=== PATIENT | female | born 1975 | race Two or more races ===

== ENCOUNTER 2023-02-23 10:51 | Inpatient (IN) | payer MEDICAID ==
[~2023-02-23] VITALS: Ht 165.1 cm; Wt 58.0 kg
[2023-02-23 11:37] LABS: Basophils # (auto) 0.1 10 ^3/uL (0-0.2); Basophils % (auto) 0.4 % (0.0-2.0); Eosinophils # (auto) 0 10 ^3/uL (0-0.8); Hematocrit 49.5 % (36.0-46.0); Hemoglobin 15.5 g/dL (12.2-16.2); Lymphocytes # (auto) 0.5 10 ^3/uL (0.4-5.4); Lymphocytes % (auto) 2.1 % (10.0-50.0); Mean Corpuscular Hemoglobin 27.8 pg (28.0-32.0); Mean Corpuscular Hgb Conc. 31.3 g/dL (32.0-36.0); Mean Corpuscular Volume 88.8 fL (80.0-100.0); Monocytes # (auto) 0.7 10 ^3/uL (0-1.3); Monocytes % (auto) 2.9 % (0.0-12.0); Neutrophils # (auto) 22.6 10 ^3/uL (1.6-8.6); Neutrophils % (auto) 94.6 % (37.0-80.0); Red Blood Cells 5.58 10^6/uL (4.0-5.20); Red Cell Distribution Width 13.4 % (11.8-14.3); White Blood Cell 23.9 10^3/uL (4.4-10.8)
[2023-02-23] MEDS ORDERED: SODIUM CHLORIDE 0.9% 1,000 ML IV ONE ×2 (11:45)
[2023-02-23] MEDS ORDERED: ONDANSETRON HCL 4 MG/2 ML VIAL IV ONE (11:45)
[2023-02-23] MEDS ORDERED: MORPHINE SULFATE 4 MG/ML SYR/VIAL IV ONE (11:45)
[2023-02-23 11:54] LABS: Albumin 3.7 g/dL (3.4-5.0); Calcium 8.3 mg/dL (8.5-10.1); Potassium 4.1 mmol/L (3.5-5.1)
[2023-02-23 11:58] LABS: BUN/Creatinine Ratio 14.6 (10.0-20.0); Bilirubin, Total 1.6 mg/dL (0.2-1.0); Total Protein 8.5 g/dL (6.4-8.2)
[2023-02-23 12:08] LABS: Urine Bacteria FEW /hpf (None Seen); Urine Blood 1+ /uL (Negative); Urine Hyaline Cast FEW /lpf (0 - 2); Urine Specific Gravity 1.025 (1.001-1.035); Urine WBC 2 /hpf (0 - 5)
[2023-02-23] MEDS ORDERED: DEXTROSE (50%) 50ML SYRG IV PRN (12:15)
[2023-02-23] MEDS ORDERED: PIPERACILLIN-TAZOB 3.375GM 100 ML IV ONE (12:15)
[2023-02-23] MEDS ORDERED: SODIUM BICARBONATE 8.4 % INJ 50ML VIAL IV ONE ×2 (12:15→20:30)
[2023-02-23 13:21] LABS: Lactic Acid w/Reflex 4.6 mmol/L (0.4-2.0)
[2023-02-23] MEDS: SODIUM CHLORIDE 0.9% 1,000 ML IV SCH ×2 (14:20→15:28)
[2023-02-23] MEDS: InsuLIN R (HUMAN) 100 UNITS in SODIUM CHL 0.9% 99 ML IV SCH (14:21)
[2023-02-23] MEDS: ACCU-CHEK COMFORT CURVE STRIP VI SCH ×7 (14:25→22:47)
[2023-02-23] MEDS ORDERED: SODIUM CHLORIDE 0.9% 1,000 ML IV SCH ×3 (16:15→18:15)
[2023-02-23] MEDS ORDERED: HYDROcodone-ACET 5/325MG TAB PO PRN (16:15)
[2023-02-23] MEDS ORDERED: ONDANSETRON HCL 4 MG/2 ML VIAL IV PRN (16:15)
[2023-02-23] MEDS ORDERED: MORPHINE SULFATE INJ 2 MG/ml SYRG IV PRN (16:15)
[2023-02-23] MEDS ORDERED: ACETAMINOPHEN 325 MG TAB PO PRN (16:15)
[2023-02-23] MEDS ORDERED: NITROGLYCERIN 0.4 MG SL TAB SL PRN (16:15)
[2023-02-23 19:02] LABS: BUN/Creatinine Ratio 23.4 (10.0-20.0); Calcium 6.1 mg/dL (8.5-10.1); Magnesium 1.5 mg/dL (1.6-2.6); Phosphorus 1.2 mg/dL (2.5-4.90); Potassium 3.2 mmol/L (3.5-5.1)
[2023-02-23] MEDS: MAGNESIUM SULFATE 1GM/100ML 100 ML IV SCH ×2 (21:21→22:13)
[2023-02-23] MEDS: POTASSIUM CHL 20MEQ/100ML 100 ML IV SCH ×2 (21:55→23:34)
[2023-02-23] MEDS: D5W/SOD CHL 0.45% 1,000 ML IV SCH (22:19)
[2023-02-23] MEDS: PIPERACILLIN-TAZOB 3.375GM 100 ML IV SCH (23:10)
[2023-02-23 23:41] LABS: Chloride 115 mmol/L (98-107); Potassium 3.5 mmol/L (3.5-5.1); Sodium 140 mmol/L (136-145)
[2023-02-24] MEDS: ACCU-CHEK COMFORT CURVE STRIP VI SCH ×12 (00:08→13:56)
[2023-02-24 00:22] LABS: Anion Gap 11 (5-15); BUN/Creatinine Ratio 22.7 (10.0-20.0); Blood Urea Nitrogen 20 mg/dL (7-18); Calcium 7.4 mg/dL (8.5-10.1); Carbon Dioxide 14 mmol/L (21-32); GFR African American 88 mL/min; GFR Non-African American 73 mL/min; Glucose 264 mg/dL (74-106); Magnesium 2.4 mg/dL (1.6-2.6)
[2023-02-24 00:24] LABS: Phosphorus 0.9 mg/dL (2.5-4.90)
[2023-02-24] MEDS ORDERED: POTASSIUM PHOSPHATE 22 MEQ in SODIUM CHL 0.9% 100 ML IV ONE (00:45)
[2023-02-24] MEDS: POTASSIUM CHL 20MEQ/100ML 100 ML IV SCH (01:40)
[2023-02-24 02:36] LABS: BUN/Creatinine Ratio 23.4 (10.0-20.0); Calcium 6.9 mg/dL (8.5-10.1); Magnesium 2.1 mg/dL (1.6-2.6); Potassium 3.3 mmol/L (3.5-5.1)
[2023-02-24 02:42] LABS: Phosphorus 0.6 mg/dL (2.5-4.90)
[2023-02-24] MEDS: D5W/SOD CHL 0.45% 1,000 ML IV SCH ×3 (03:35→19:09)
[2023-02-24] MEDS ORDERED: POLYETHYLENE GLYCOL 17 GM PWDR PO PRN (04:15)
[2023-02-24] MEDS: PIPERACILLIN-TAZOB 3.375GM 100 ML IV SCH ×3 (05:28→21:40)
[2023-02-24 06:14] LABS: BUN/Creatinine Ratio 20.9 (10.0-20.0); Calcium 7.2 mg/dL (8.5-10.1); Magnesium 2.5 mg/dL (1.6-2.6); Phosphorus 1.1 mg/dL (2.5-4.90); Potassium 3.4 mmol/L (3.5-5.1)
[2023-02-24] MEDS ORDERED: POTASSIUM CHL 20MEQ/100ML 100 ML IV ONE (07:00)
[2023-02-24] MEDS ORDERED: DEXTROSE (50%) 50ML SYRG IV PRN (07:00)
[2023-02-24] MEDS ORDERED: INSULIN LANTUS (GLARGINE) 1 /0.01ml (100units/ml) SC ONE (07:30)
[2023-02-24] MEDS: InsuLIN REG 1unit/0.01ml Soln (100units/ml) SC SCH ×2 (09:30→12:00)
[2023-02-24] MEDS ORDERED: POTASSIUM PHOSPHATE 44 MEQ in D5W 5% 250 ML IV ONE (09:45)
[2023-02-24 10:39] LABS: BUN/Creatinine Ratio 19.4 (10.0-20.0); Calcium 7.3 mg/dL (8.5-10.1); Magnesium 2.4 mg/dL (1.6-2.6); Potassium 3.2 mmol/L (3.5-5.1)
[2023-02-24 11:27] LABS: Phosphorus 0.8 mg/dL (2.5-4.90)
[2023-02-24] MEDS: ENOXAPARIN SOD 40 MG/0.4 ML SYRINGE SC SCH (11:34)
[2023-02-24] MEDS: InsuLIN R (HUMAN) 100 UNITS in SODIUM CHL 0.9% 99 ML IV SCH (12:16)
[2023-02-24 14:48] LABS: BUN/Creatinine Ratio 16.7 (10.0-20.0); Calcium 7.4 mg/dL (8.5-10.1); Magnesium 2.5 mg/dL (1.6-2.6); Phosphorus 1.3 mg/dL (2.5-4.90); Potassium 3.2 mmol/L (3.5-5.1)
[2023-02-24] MEDS ORDERED: DEXTROSE (50%) 50ML SYRG IV ONE ×2 (15:15→19:15)
[2023-02-24] MEDS ORDERED: InsuLIN REG 1unit/0.01ml Soln (100units/ml) SC ONE ×2 (17:00→22:00)
[2023-02-24] MEDS ORDERED: ACCU-CHEK COMFORT CURVE STRIP VI ONE ×2 (17:00→22:00)
[2023-02-25] MEDS: D5W/SOD CHL 0.45% 1,000 ML IV SCH ×2 (04:35→12:54)
[2023-02-25] MEDS ORDERED: DEXTROSE (50%) 50ML SYRG IV PRN (05:45)
[2023-02-25 06:19] LABS: Basophils # (auto) 0 10 ^3/uL (0-0.2); Basophils % (auto) 0.2 % (0.0-2.0); Eosinophils # (auto) 0 10 ^3/uL (0-0.8); Eosinophils % (auto) 0.1 % (0.0-7.0); Hematocrit 32.8 % (36.0-46.0); Hemoglobin 10.8 g/dL (12.2-16.2); Lymphocytes # (auto) 2.5 10 ^3/uL (0.4-5.4); Lymphocytes % (auto) 17.3 % (10.0-50.0); Mean Corpuscular Hemoglobin 28.1 pg (28.0-32.0); Mean Corpuscular Hgb Conc. 33.1 g/dL (32.0-36.0); Monocytes # (auto) 0.9 10 ^3/uL (0-1.3); Monocytes % (auto) 6.1 % (0.0-12.0); Neutrophils % (auto) 76.3 % (37.0-80.0); Nucleated Red Blood Cells % 0.1 %; Red Blood Cells 3.85 10^6/uL (4.0-5.20); Red Cell Distribution Width 12.9 % (11.8-14.3); White Blood Cell 14.4 10^3/uL (4.4-10.8)
[2023-02-25] MEDS: PIPERACILLIN-TAZOB 3.375GM 100 ML IV SCH ×2 (06:28→13:54)
[2023-02-25 06:33] LABS: BUN/Creatinine Ratio 19.1 (10.0-20.0); Calcium 7.7 mg/dL (8.5-10.1); Magnesium 2.2 mg/dL (1.6-2.6); Phosphorus 2.3 mg/dL (2.5-4.90); Potassium 3.1 mmol/L (3.5-5.1)
[2023-02-25] MEDS: InsuLIN REG 1unit/0.01ml Soln (100units/ml) SC SCH ×3 (08:12→16:42)
[2023-02-25] MEDS: ACCU-CHEK COMFORT CURVE STRIP VI SCH ×3 (08:13→16:41)
[2023-02-25] MEDS ORDERED: INSULIN LANTUS (GLARGINE) 1 /0.01ml (100units/ml) SC SCH (10:00)
[2023-02-25 10:30] VITALS: BP 127/75
[2023-02-25] MEDS: ENOXAPARIN SOD 40 MG/0.4 ML SYRINGE SC SCH (10:50)
[2023-02-25] MEDS ORDERED: GLIP5TAB12 PO ×2 (11:37→14:17)
[2023-02-25] MEDS ORDERED: INSU1INJ19 SC ×2 (11:37→14:17)
[2023-02-25] MEDS ORDERED: DIPH25CA66 PO (11:37)
[2023-02-25] MEDS ORDERED: GABA-1250 PO ×2 (11:37→14:17)
[2023-02-25] MEDS ORDERED: INSREG3 (11:39)
[2023-02-25 13:00] VITALS: BP 124/72
[2023-02-25] MEDS ORDERED: POTASSIUM EFFERVESENT TAB 25 MEQ PO ONE (13:30)
[2023-02-25 16:00] VITALS: BP 124/72
[2023-02-25 16:56] VITALS: BP 126/76
== END 2023-02-25 17:20 | disposition home or self-care (01) | DRG 420 ==
LOC: ER 10:51 → TELE 16:20 → TELE-WESTW 02-25 10:22
PROVIDERS: ADMIT Internal Medicine; ATTEND Internal Medicine
PROC: 05H933Z Insertion of Infusion Device into Right Brachial Vein, Percutaneous Approach (ICD-10-PCS; principal; 2023-02-23)
PROC: B54MZZA Ultrasonography of Right Upper Extremity Veins, Guidance (ICD-10-PCS; 2023-02-23)
DX: E10.10 Type 1 diabetes mellitus with ketoacidosis without coma (principal); D72.829 Elevated white blood cell count, unspecified; Z91.199 Patient's noncompliance with other medical treatment and regimen due to unspecified reason
CPT/HCPCS: 36415; 36600; 74176; 80048; 80053; 81001; 82010; 82805; 82962; 83036; 83605; 83735; 84100; 85025; 87040; 96361; 96365; 96375; 99291; G0378; J1815; J2405; J2543; J3480; J7060

== ENCOUNTER 2023-05-03 13:12 | Emergency (ER) | payer MEDICAID ==
[~2023-05-03] VITALS: Ht 165.1 cm; Wt 58.1 kg
[~2023-05-03 13:12] MED LIST: GABA-1250 PO; GLIP5TAB12 PO; INSU1INJ19 SC
[2023-05-03] MEDS ORDERED: SODIUM CHLORIDE 0.9% 1,000 ML IV ONE (13:45)
[2023-05-03 14:29] LABS: Basophils # (auto) 0 10 ^3/uL (0-0.2); Basophils % (auto) 0.3 % (0.0-2.0); Eosinophils # (auto) 0.1 10 ^3/uL (0-0.8); Eosinophils % (auto) 0.9 % (0.0-7.0); Hematocrit 38.7 % (36.0-46.0); Hemoglobin 12.9 g/dL (12.2-16.2); Lymphocytes # (auto) 2.7 10 ^3/uL (0.4-5.4); Lymphocytes % (auto) 29.8 % (10.0-50.0); Mean Corpuscular Hemoglobin 28.8 pg (28.0-32.0); Mean Corpuscular Hgb Conc. 33.3 g/dL (32.0-36.0); Mean Corpuscular Volume 86.7 fL (80.0-100.0); Monocytes # (auto) 0.7 10 ^3/uL (0-1.3); Monocytes % (auto) 7.1 % (0.0-12.0); Neutrophils # (auto) 5.7 10 ^3/uL (1.6-8.6); Neutrophils % (auto) 61.9 % (37.0-80.0); Red Blood Cells 4.47 10^6/uL (4.0-5.20); Red Cell Distribution Width 12.7 % (11.8-14.3); White Blood Cell 9.1 10^3/uL (4.4-10.8)
[2023-05-03 14:41] LABS: Base Excess 1.7 mmol/L (-2.0-2.0)
[2023-05-03 14:43] LABS: Alanine Aminotransferase 22 U/L (7-40); Albumin 4.5 g/dL (3.2-4.8); Alkaline Phosphatase 126 U/L (46-116); Anion Gap 4 (5-15); Aspartate Aminotransferase 9 U/L (13-40); BUN/Creatinine Ratio 18.8 (10.0-20.0); Blood Urea Nitrogen 13 mg/dL (9-23); Calcium 9.7 mg/dL (8.7-10.4); Carbon Dioxide 30 mmol/L (20-30); Chloride 103 mmol/L (98-107); Glucose 336 mg/dL (74-106); Lipase 38 U/L (12-53); Potassium 4.5 mmol/L (3.5-5.1); Sodium 137 mmol/L (136-145)
[2023-05-03 14:44] LABS: Bilirubin, Total 0.4 mg/dL (0.2-1.0); Total Protein 7.2 g/dL (5.7-8.2)
[2023-05-03 17:06] LABS: Urine Bacteria NONE SEEN /hpf (None Seen); Urine Blood Negative /uL (Negative); Urine Clarity Clear (Clear); Urine Color Colorless (Yellow); Urine Protein, UAD Negative (Negative); Urine Specific Gravity 1.035 (1.001-1.035); Urine Urobilinogen Normal (Negative); Urine WBC 5 /hpf (0 - 5); Urine pH 5.5 (5.0-8.0)
[2023-05-03 20:15] VITALS: BP 170/102; PULSE 92; RESP 18; TEMP 97.6; O2SAT 100
== END 2023-05-03 20:18 | disposition home or self-care (01) ==
LOC: ER 13:12
DX: E11.65 Type 2 diabetes mellitus with hyperglycemia (principal); R94.31 Abnormal electrocardiogram [ECG] [EKG]; Z32.02 Encounter for pregnancy test, result negative; Z88.8 Allergy status to other drugs, medicaments and biological substances
CPT/HCPCS: 36415; 36600; 80053; 81001; 81025; 82805; 82962; 83690; 83880; 84484; 85025; 93005; 96360; 96361; 99284; J7030

== ENCOUNTER 2023-10-23 10:58 | Emergency (ER) | payer MEDICAID ==
[~2023-10-23] VITALS: Ht 165.1 cm; Wt 54.5 kg
[2023-10-23 12:00] VITALS: PULSE 74; RESP 18; O2SAT 96
[2023-10-23] MEDS: SODIUM CHLORIDE 0.9% 1,000 ML IV ONE ×2 (12:38→17:21)
[2023-10-23] MEDS: InsuLIN REG 1unit/0.01ml Soln (100units/ml) IV ONE (12:41)
[2023-10-23 12:56] LABS: Base Excess -6.6 mmol/L (-2.0-2.0)
[2023-10-23 13:15] LABS: Basophils # (auto) 0 10 ^3/uL (0-0.2); Basophils % (auto) 0.3 % (0.0-2.0); Eosinophils # (auto) 0 10 ^3/uL (0-0.8); Eosinophils % (auto) 0.3 % (0.0-7.0); Hematocrit 39.3 % (36.0-46.0); Hemoglobin 12.6 g/dL (12.2-16.2); Lymphocytes % (auto) 19.8 % (10.0-50.0); Mean Corpuscular Hgb Conc. 32.1 g/dL (32.0-36.0); Mean Corpuscular Volume 87.2 fL (80.0-100.0); Monocytes # (auto) 0.7 10 ^3/uL (0-1.3); Monocytes % (auto) 6.7 % (0.0-12.0); Neutrophils # (auto) 7.4 10 ^3/uL (1.6-8.6); Neutrophils % (auto) 72.9 % (37.0-80.0); Nucleated Red Blood Cells % 0.1 %; Red Blood Cells 4.51 10^6/uL (4.0-5.20); Red Cell Distribution Width 13.2 % (11.8-14.3); White Blood Cell 10.1 10^3/uL (4.4-10.8)
[2023-10-23 13:42] LABS: Alanine Aminotransferase 14 U/L (7-40); Albumin 3.5 g/dL (3.2-4.8); Alkaline Phosphatase 106 U/L (46-116); Anion Gap 12 (5-15); Aspartate Aminotransferase 11 U/L (13-40); BUN/Creatinine Ratio 12.4 (10.0-20.0); Blood Urea Nitrogen 12 mg/dL (9-23); Calcium 8.4 mg/dL (8.7-10.4); Carbon Dioxide 20 mmol/L (20-30); Chloride 100 mmol/L (98-107); Magnesium 1.7 mg/dL (1.6-2.6); Sodium 132 mmol/L (136-145)
[2023-10-23 13:43] LABS: Bilirubin, Total 0.7 mg/dL (0.2-1.0); Total Protein 5.7 g/dL (5.7-8.2)
[2023-10-23 14:17] LABS: Glucose 471 mg/dL (74-106)
[2023-10-23 15:00] VITALS: BP 123/79; RESP 15; TEMP 98.2; O2SAT 99
[2023-10-23 16:00] VITALS: PULSE 100
[2023-10-23 17:08] LABS: Urine Bacteria NONE SEEN /hpf (None Seen); Urine Blood Negative /uL (Negative); Urine Clarity Clear (Clear); Urine Color Colorless (Yellow); Urine Protein, UAD Negative (Negative); Urine Specific Gravity 1.037 (1.001-1.035); Urine Urobilinogen Normal (Negative); Urine WBC 7 /hpf (0 - 5); Urine pH 5.5 (5.0-8.0)
== END 2023-10-23 17:54 | disposition home or self-care (01) ==
LOC: EDBD 10:58 → ER 10:58
DX: E11.65 Type 2 diabetes mellitus with hyperglycemia (principal); R10.2 Pelvic and perineal pain; E78.5 Hyperlipidemia, unspecified; I10 Essential (primary) hypertension; Z32.02 Encounter for pregnancy test, result negative
CPT/HCPCS: 36415; 36600; 71045; 80053; 81001; 81025; 82010; 82805; 82962; 83605; 83735; 84484; 84702; 85025; 96361; 96374; 99285; J1815; J7030

== ENCOUNTER 2023-12-24 15:49 | Inpatient (IN) | payer MEDICAID ==
[~2023-12-24] VITALS: Ht 165.1 cm; Wt 53.3 kg
[~2023-12-24 15:49] MED LIST changes: +CEPH500C PO; +CLIN1CAP70 PO; -GLIP5TAB12 PO; +GLIP5TAB21 PO
[2023-12-24] MEDS: SODIUM CHLORIDE 0.9% 1,000 ML IV ONE ×2 (17:37→23:01)
[2023-12-24 17:40] LABS: Base Excess 4.1 mmol/L (-2.0-2.0)
[2023-12-24 19:16] LABS: Basophils # (auto) 0 10 ^3/uL (0-0.2); Basophils % (auto) 0.3 % (0.0-2.0); Eosinophils # (auto) 0.1 10 ^3/uL (0-0.8); Mean Corpuscular Volume 87.8 fL (80.0-100.0); Neutrophils # (auto) 4.5 10 ^3/uL (1.6-8.6)
[2023-12-24 19:19] LABS: Hematocrit 40.8 % (36.0-46.0); Lymphocytes # (auto) 2.4 10 ^3/uL (0.4-5.4); Lymphocytes % (auto) 31.9 % (10.0-50.0); Mean Corpuscular Hemoglobin 27.8 pg (28.0-32.0); Mean Corpuscular Hgb Conc. 31.7 g/dL (32.0-36.0); Monocytes # (auto) 0.5 10 ^3/uL (0-1.3); Monocytes % (auto) 6.3 % (0.0-12.0); Neutrophils % (auto) 60.5 % (37.0-80.0); Red Blood Cells 4.65 10^6/uL (4.0-5.20); Red Cell Distribution Width 12.7 % (11.8-14.3); White Blood Cell 7.5 10^3/uL (4.4-10.8)
[2023-12-24 20:15] LABS: Alanine Aminotransferase 25 U/L (7-40); Albumin 4.2 g/dL (3.2-4.8); Alkaline Phosphatase 238 U/L (46-116); Anion Gap 6 (5-15); Aspartate Aminotransferase 19 U/L (13-40); BUN/Creatinine Ratio 13.7 (10.0-20.0); Blood Urea Nitrogen 14 mg/dL (9-23); Calcium 9.5 mg/dL (8.5-10.1); Carbon Dioxide 27 mmol/L (20-30); Chloride 97 mmol/L (98-107); Potassium 4.5 mmol/L (3.5-5.1); Sodium 130 mmol/L (136-145)
[2023-12-24 20:16] LABS: Bilirubin, Total 0.2 mg/dL (0.2-1.0)
[2023-12-24 21:05] LABS: Glucose 607 mg/dL (74-106)
[2023-12-24 21:56] LABS: Urine Bacteria None Seen /hpf (None Seen)
[2023-12-24 22:13] LABS: Urine Blood Negative /uL (Negative); Urine Clarity Clear (Clear); Urine Color Colorless (Yellow); Urine Protein, UAD Negative (Negative); Urine Specific Gravity 1.038 (1.001-1.035); Urine Urobilinogen Normal (Negative); Urine WBC <1 /hpf (0 - 5); Urine pH 5.5 (5.0-9.0)
[2023-12-24] MEDS: InsuLIN REG 1unit/0.01ml Soln (100units/ml) IV ONE (23:02)
[2023-12-25] MEDS ORDERED: ACETAMINOPHEN 325 MG TAB PO PRN (00:30)
[2023-12-25] MEDS ORDERED: DEXTROSE (50%) 50ML SYRG IV PRN ×2 (00:30→12:00)
[2023-12-25] MEDS ORDERED: ONDANSETRON HCL 4 MG/2 ML VIAL IV PRN (00:30)
[2023-12-25] MEDS ORDERED: TEMAZEPAM 15 MG CAP PO PRN (00:30)
[2023-12-25] MEDS: ACCU-CHEK COMFORT CURVE STRIP VI SCH ×2 (04:07→16:32)
[2023-12-25] MEDS: InsuLIN REG 1unit/0.01ml Soln (100units/ml) SC SCH ×3 (04:10→21:37)
[2023-12-25] MEDS: InsuLIN REG 1unit/0.01ml Soln (100units/ml) IV ONE (05:28)
[2023-12-25 09:05] VITALS: BP 135/90; PULSE 94; RESP 16; TEMP 98.1; O2SAT 99
[2023-12-25 09:11] VITALS: BP 135/90; PULSE 94; RESP 16; TEMP 98.1; O2SAT 99
[2023-12-25] MEDS: LISINOPRIL 5 MG TAB PO SCH (09:40)
[2023-12-25] MEDS: INSULIN LANTUS (GLARGINE) 1 /0.01ml (100units/ml) SC SCH (09:44)
[2023-12-25] MEDS: NYSTATIN (MOUTH-THROAT) 500,000 UNITS/5 ML SUSP MT SCH (12:42)
[2023-12-25] MEDS: FLUCONAZOLE 200MG/100ML 100 ML IV ONE (12:42)
[2023-12-25] MEDS: PANTOPRAZOLE 40 MG/10 ML VIAL INJ IV ONE (12:42)
[2023-12-25 13:00] VITALS: BP 123/79; PULSE 77; RESP 18; TEMP 98.2; O2SAT 99
[2023-12-25 17:50] VITALS: BP 129/80; PULSE 96; RESP 18; TEMP 98.2; O2SAT 98
[2023-12-25 21:00] VITALS: BP 122/75; PULSE 86; RESP 16; TEMP 98.5; O2SAT 98
[2023-12-25] MEDS: ATORVASTATIN 20 MG TAB PO SCH (21:17)
[2023-12-26 01:00] VITALS: BP 117/70; PULSE 92; RESP 16; TEMP 97.8; O2SAT 97
[2023-12-26 05:00] VITALS: BP 121/80; PULSE 81; RESP 16; TEMP 98.2; O2SAT 97
[2023-12-26 07:16] LABS: Basophils # (auto) 0.1 10 ^3/uL (0-0.2); Basophils % (auto) 0.8 % (0.0-2.0); Eosinophils # (auto) 0 10 ^3/uL (0-0.8); Eosinophils % (auto) 0.4 % (0.0-7.0); Hematocrit 37.3 % (36.0-46.0); Hemoglobin 11.9 g/dL (12.2-16.2); Lymphocytes # (auto) 2.3 10 ^3/uL (0.4-5.4); Lymphocytes % (auto) 29.8 % (10.0-50.0); Mean Corpuscular Hemoglobin 27.6 pg (28.0-32.0); Mean Corpuscular Hgb Conc. 31.9 g/dL (32.0-36.0); Mean Corpuscular Volume 86.6 fL (80.0-100.0); Monocytes # (auto) 0.4 10 ^3/uL (0-1.3); Monocytes % (auto) 5.8 % (0.0-12.0); Neutrophils # (auto) 4.9 10 ^3/uL (1.6-8.6); Neutrophils % (auto) 63.2 % (37.0-80.0); Red Blood Cells 4.31 10^6/uL (4.0-5.20); Red Cell Distribution Width 12.7 % (11.8-14.3); White Blood Cell 7.7 10^3/uL (4.4-10.8)
[2023-12-26 08:35] VITALS: BP 141/85; PULSE 82; RESP 18; TEMP 98.2; O2SAT 100
[2023-12-26] MEDS: PANTOPRAZOLE 40 MG/10 ML VIAL INJ IV SCH (09:17)
[2023-12-26] MEDS: FLUCONAZOLE 200MG/100ML 100 ML IV SCH (09:18)
[2023-12-26 11:56] VITALS: BP 123/80; PULSE 74; RESP 17; TEMP 98.1; O2SAT 100
[2023-12-26 12:58] LABS: Alanine Aminotransferase 17 U/L (7-40); Albumin 3.5 g/dL (3.2-4.8); Alkaline Phosphatase 105 U/L (46-116); Anion Gap 4 (5-15); Aspartate Aminotransferase 17 U/L (13-40); BUN/Creatinine Ratio 13.9 (10.0-20.0); Bilirubin, Total 0.3 mg/dL (0.2-1.0); Blood Urea Nitrogen 10 mg/dL (9-23); Calcium 8.8 mg/dL (8.5-10.1); Carbon Dioxide 27 mmol/L (20-30); Chloride 104 mmol/L (98-107); Glucose 333 mg/dL (74-106); Magnesium 1.7 mg/dL (1.6-2.6)
[2023-12-26 13:10] LABS: Sodium 135 mmol/L (136-145)
[2023-12-26 17:11] VITALS: BP 146/74; PULSE 89; RESP 18; TEMP 98.2; O2SAT 100
[2023-12-26 21:00] VITALS: BP 131/83; PULSE 82; RESP 14; TEMP 98.3; O2SAT 100
[2023-12-26] MEDS: INSULIN LANTUS (GLARGINE) 1 /0.01ml (100units/ml) SC SCH (22:29)
[2023-12-27] VITALS (9 sets, daily range): BP systolic 106–119; BP diastolic 60–78; PULSE 76–89; RESP 14–17; TEMP 97.7–98.4; O2SAT 60–100
[2023-12-27 07:54] LABS: INR 0.99 (0.9-1.15); Partial Thromboplastin Time 23.7 SEC (24.5-34.5); Prothrombin Time 10.5 sec (9.3-11.8)
[2023-12-27] MEDS ORDERED: SODIUM CHLORIDE LOCK 10 ML ONE (08:06)
[2023-12-27] MEDS ORDERED: LIDOCAINE VISCOUS 2% 15ML UD ONE (08:06)
[2023-12-27] MEDS: diphenhdrAMINE HCL 50 MG/1 ML VL ONE (11:33)
[2023-12-27] MEDS: fentaNYL CITRATE 100 MCG/2 ML VL ONE (11:33)
[2023-12-27] MEDS: MIDAZOLAM HCL 5 MG/ML-1ML VIAL ONE (11:33)
[2023-12-28] VITALS (8 sets, daily range): BP systolic 110–132; BP diastolic 63–81; PULSE 74–87; RESP 14–17; TEMP 98–98.4; O2SAT 100
[2023-12-28 06:02] LABS: Basophils # (auto) 0 10 ^3/uL (0-0.2); Basophils % (auto) 0.3 % (0.0-2.0); Eosinophils # (auto) 0 10 ^3/uL (0-0.8); Eosinophils % (auto) 0.5 % (0.0-7.0); Hematocrit 36.4 % (36.0-46.0); Hemoglobin 11.7 g/dL (12.2-16.2); Lymphocytes # (auto) 2.4 10 ^3/uL (0.4-5.4); Lymphocytes % (auto) 38.3 % (10.0-50.0); Mean Corpuscular Hemoglobin 27.7 pg (28.0-32.0); Mean Corpuscular Hgb Conc. 32.1 g/dL (32.0-36.0); Mean Corpuscular Volume 86.4 fL (80.0-100.0); Monocytes # (auto) 0.5 10 ^3/uL (0-1.3); Monocytes % (auto) 8.3 % (0.0-12.0); Neutrophils # (auto) 3.4 10 ^3/uL (1.6-8.6); Neutrophils % (auto) 52.6 % (37.0-80.0); Red Blood Cells 4.21 10^6/uL (4.0-5.20); Red Cell Distribution Width 12.7 % (11.8-14.3); White Blood Cell 6.4 10^3/uL (4.4-10.8)
[2023-12-28 06:10] LABS: Alanine Aminotransferase 15 U/L (7-40); Albumin 3.2 g/dL (3.2-4.8); Alkaline Phosphatase 88 U/L (46-116); Anion Gap 5 (5-15); Aspartate Aminotransferase 13 U/L (13-40); Bilirubin, Total 0.5 mg/dL (0.2-1.0); Calcium 8.8 mg/dL (8.5-10.1); Carbon Dioxide 29 mmol/L (20-30); Chloride 104 mmol/L (98-107); Glucose 180 mg/dL (74-106); Potassium 3.5 mmol/L (3.5-5.1); Sodium 138 mmol/L (136-145); Total Protein 5.7 g/dL (5.7-8.2)
[2023-12-28 07:41] LABS: BUN/Creatinine Ratio 12.9 (10.0-20.0); Blood Urea Nitrogen 9 mg/dL (9-23)
[2023-12-28] MEDS: INSULIN LANTUS (GLARGINE) 1 /0.01ml (100units/ml) SC SCH (08:36)
[2023-12-29] VITALS (7 sets, daily range): BP systolic 96–121; BP diastolic 61–82; PULSE 74–85; RESP 16–19; TEMP 97.7–98.3; O2SAT 98–100
[2023-12-29] MEDS: METOCLOPRAMIDE HCL 10 MG TAB PO SCH (14:00)
[2023-12-29] MEDS: INSULIN LANTUS (GLARGINE) 1 /0.01ml (100units/ml) SC SCH (22:00)
[2023-12-29] MEDS: PANTOPRAZOLE 40 MG TAB PO SCH (22:27)
[2023-12-30 05:00] VITALS: BP 104/68; PULSE 79; RESP 17; TEMP 98.2; O2SAT 99
[2023-12-30 06:11] LABS: Basophils # (auto) 0 10 ^3/uL (0-0.2); Basophils % (auto) 0.2 % (0.0-2.0); Eosinophils # (auto) 0 10 ^3/uL (0-0.8); Eosinophils % (auto) 0.5 % (0.0-7.0); Hematocrit 36.6 % (36.0-46.0); Hemoglobin 12.3 g/dL (12.2-16.2); Lymphocytes # (auto) 2.4 10 ^3/uL (0.4-5.4); Lymphocytes % (auto) 30.3 % (10.0-50.0); Mean Corpuscular Hemoglobin 29.2 pg (28.0-32.0); Mean Corpuscular Hgb Conc. 33.6 g/dL (32.0-36.0); Mean Corpuscular Volume 86.9 fL (80.0-100.0); Monocytes # (auto) 0.7 10 ^3/uL (0-1.3); Monocytes % (auto) 8.5 % (0.0-12.0); Neutrophils # (auto) 4.8 10 ^3/uL (1.6-8.6); Neutrophils % (auto) 60.5 % (37.0-80.0); Red Blood Cells 4.22 10^6/uL (4.0-5.20); Red Cell Distribution Width 12.6 % (11.8-14.3)
[2023-12-30 06:29] LABS: Alanine Aminotransferase 19 U/L (7-40); Albumin 3.3 g/dL (3.2-4.8); Alkaline Phosphatase 83 U/L (46-116); Anion Gap 5 (5-15); Aspartate Aminotransferase 20 U/L (13-40); BUN/Creatinine Ratio 19.4 (10.0-20.0); Blood Urea Nitrogen 12 mg/dL (9-23); Calcium 8.9 mg/dL (8.7-10.4); Carbon Dioxide 29 mmol/L (20-30); Chloride 106 mmol/L (98-107); Glucose 102 mg/dL (74-106); Magnesium 1.7 mg/dL (1.6-2.6); Potassium 3.7 mmol/L (3.5-5.1); Sodium 140 mmol/L (136-145)
[2023-12-30 06:30] LABS: Bilirubin, Total 0.8 mg/dL (0.2-1.0); Total Protein 5.8 g/dL (5.7-8.2)
[2023-12-30] MEDS ORDERED: PANT40T PO (08:45)
[2023-12-30] MEDS ORDERED: LISI-275 PO (08:45)
[2023-12-30] MEDS ORDERED: ATOR40TA52 PO (08:45)
[2023-12-30] MEDS ORDERED: METO10TA3 PO (08:45)
[2023-12-30] MEDS ORDERED: INSUINJ37 SC (08:47)
[2023-12-30 09:00] VITALS: BP 115/71; PULSE 71; RESP 19; TEMP 97.8; O2SAT 100
[2023-12-30 12:10] VITALS: BP 123/83; PULSE 71; RESP 18; TEMP 97.5
[2023-12-30 13:00] VITALS: BP 123/83; PULSE 71; RESP 18; TEMP 97.5; O2SAT 98
== END 2023-12-30 14:46 | disposition home or self-care (01) | DRG 254 ==
LOC: ER 15:49 → OVERFLOW 12-25 00:26 → EAST 12-25 09:07 → CENTRAL 12-25 17:39
PROVIDERS: ADMIT Internal Medicine Geriatric Medicine; ATTEND Internal Medicine
PROC: 0DB68ZX Excision of Stomach, Via Natural or Artificial Opening Endoscopic, Diagnostic (ICD-10-PCS; 2023-12-27)
PROC: 0DB98ZX Excision of Duodenum, Via Natural or Artificial Opening Endoscopic, Diagnostic (ICD-10-PCS; principal; 2023-12-27 11:25)
DX: K31.3 Pylorospasm, not elsewhere classified (principal); N17.9 Acute kidney failure, unspecified; B37.0 Candidal stomatitis; E11.43 Type 2 diabetes mellitus with diabetic autonomic (poly)neuropathy; K31.84 Gastroparesis; E87.1 Hypo-osmolality and hyponatremia; E11.65 Type 2 diabetes mellitus with hyperglycemia; M32.9 Systemic lupus erythematosus, unspecified; F17.210 Nicotine dependence, cigarettes, uncomplicated; I10 Essential (primary) hypertension; L98.499 Non-pressure chronic ulcer of skin of other sites with unspecified severity; E78.2 Mixed hyperlipidemia; K44.9 Diaphragmatic hernia without obstruction or gangrene; Z79.4 Long term (current) use of insulin; Z82.0 Family history of epilepsy and other diseases of the nervous system; Z82.49 Family history of ischemic heart disease and other diseases of the circulatory system; Z82.5 Family history of asthma and other chronic lower respiratory diseases; Z83.3 Family history of diabetes mellitus; L03.811 Cellulitis of head [any part, except face]
CPT/HCPCS: 36415; 36600; 43239; 71045; 80053; 81001; 82010; 82805; 82962; 83036; 83735; 84702; 85025; 85610; 85730; 93005; C9113; G0378; J1450; J1815; J2250

== ENCOUNTER 2024-01-23 11:39 | Emergency (ER) | payer MEDICAID ==
[~2024-01-23 11:39] MED LIST changes: +ATOR40TA52 PO; -CEPH500C PO; -CLIN1CAP70 PO; -INSU1INJ19 SC; +INSUINJ37 SC; +LISI-275 PO; +METO10TA3 PO; +PANT40T PO
[2024-01-23 12:05] VITALS: BP 122/99; PULSE 93
[2024-01-23] MEDS: SODIUM CHLORIDE 0.9% 1,000 ML IV ONE (12:13)
[2024-01-23 12:14] LABS: Basophils # (auto) 0 10 ^3/uL (0-0.2); Basophils % (auto) 0.3 % (0.0-2.0); Eosinophils # (auto) 0 10 ^3/uL (0-0.8); Eosinophils % (auto) 0.4 % (0.0-7.0); Hematocrit 42.4 % (36.0-46.0); Hemoglobin 13.4 g/dL (12.2-16.2); Lymphocytes % (auto) 20.5 % (10.0-50.0); Mean Corpuscular Hemoglobin 27.8 pg (28.0-32.0); Mean Corpuscular Hgb Conc. 31.5 g/dL (32.0-36.0); Mean Corpuscular Volume 88.2 fL (80.0-100.0); Monocytes # (auto) 0.7 10 ^3/uL (0-1.3); Monocytes % (auto) 7.1 % (0.0-12.0); Neutrophils # (auto) 6.9 10 ^3/uL (1.6-8.6); Neutrophils % (auto) 71.7 % (37.0-80.0); Red Blood Cells 4.81 10^6/uL (4.0-5.20); Red Cell Distribution Width 12.8 % (11.8-14.3); White Blood Cell 9.6 10^3/uL (4.4-10.8)
[2024-01-23 12:15] VITALS: RESP 18; O2SAT 98
[2024-01-23 12:31] LABS: Alanine Aminotransferase 17 U/L (7-40); Albumin 4.1 g/dL (3.2-4.8); Alkaline Phosphatase 160 U/L (46-116); Anion Gap 7 (5-15); Aspartate Aminotransferase 12 U/L (13-40); BUN/Creatinine Ratio 20.7 (10.0-20.0); Blood Urea Nitrogen 17 mg/dL (9-23); Calcium 9.6 mg/dL (8.5-10.1); Carbon Dioxide 24 mmol/L (20-30); Chloride 101 mmol/L (98-107); Magnesium 1.7 mg/dL (1.6-2.6); Potassium 4.4 mmol/L (3.5-5.1); Sodium 132 mmol/L (136-145)
[2024-01-23 12:32] LABS: Bilirubin, Total 0.3 mg/dL (0.2-1.0); Total Protein 6.8 g/dL (5.7-8.2)
[2024-01-23 12:38] LABS: Glucose 445 mg/dL (74-106)
[2024-01-23] MEDS ORDERED: InsuLIN REG 1unit/0.01ml Soln (100units/ml) IV ONE (13:15)
[2024-01-23 14:18] LABS: Urine Bacteria None Seen /hpf (None Seen)
[2024-01-23 15:16] LABS: Urine Blood Negative /uL (Negative); Urine Clarity Clear (Clear); Urine Color Light-Yellow (Yellow); Urine Protein, UAD Negative (Negative); Urine Specific Gravity 1.036 (1.001-1.035); Urine Urobilinogen Normal (Negative); Urine WBC 1 /hpf (0 - 5); Urine pH 5.5 (5.0-9.0)
== END 2024-01-23 15:36 | disposition home or self-care (01) ==
LOC: ER 11:39 → EDBD 11:39 → ER 15:36
DX: E11.65 Type 2 diabetes mellitus with hyperglycemia (principal); I10 Essential (primary) hypertension; E78.5 Hyperlipidemia, unspecified; Z88.8 Allergy status to other drugs, medicaments and biological substances; Z88.0 Allergy status to penicillin; Z79.899 Other long term (current) drug therapy
CPT/HCPCS: 36415; 80053; 81001; 82010; 82962; 83605; 83735; 84484; 85025; 96360; 99284; J7030